=== PATIENT | female | born 1945 | race Two or more races ===

== ENCOUNTER 2021-05-19 13:07 | Emergency (ER) | payer BC ==
[~2021-05-19] VITALS: Ht 167.6 cm; Wt 64.0 kg
[2021-05-19 13:33] VITALS: BP 95/60
== END 2021-05-19 14:11 | disposition home or self-care (01) ==
LOC: ER 13:07
DX: U07.1 COVID-19 (principal); M06.9 Rheumatoid arthritis, unspecified; Z96.649 Presence of unspecified artificial hip joint
CPT/HCPCS: 99283; C9803; U0003; U0005